=== PATIENT | female | born 2000 | race Hispanic/Latino ===

== ENCOUNTER 2021-04-14 12:07 | Emergency (ER) | payer OTHER ==
[~2021-04-14] VITALS: Ht 162.6 cm; Wt 54.4 kg
[2021-04-14] MEDS ORDERED: ONDANSETRON ODT8 MG PO (12:20)
== END 2021-04-14 15:22 | disposition home or self-care (01) ==
LOC: ED 12:07
DX: K29.00 Acute gastritis without bleeding (principal)
CPT/HCPCS: 74177; 80053; 81001; 83690; 84703; 85025; 99285-25; J2405; J7030; Q9967